=== PATIENT | female | born 1985 | race Caucasian/White ===

== ENCOUNTER → 2018-01-20 14:03 | Observation (INO) ==
--- NOTE | 2018-01-20 13:35 | OB/GYN Progress Note ---
Date of Encounter: 01/20/18 Time of Encounter: 13:32 - Assessment and Plan (1) 36 weeks gestation of Current Visit: Yes Status: Acute (2) Dizziness Current Visit: Yes Status: Acute Exam WNL. Pt tolerating water at this time. When I went to examine her she had left the unit to smoke. Upon her return she reports feeling better. She states she was just concerned about her swelling and wasn't feeling well earlier today. She denies any other complaints. Discharge home with precautions. Subjective - Subjective Interval history: 32 year-old presenting at 36w5d with c/o feeling lightheaded, dizzy, and disoriented. She denies leaking, bleeding, or regular contractions. Good FM. She reports she primarily drinks soda. She denies complications and receives care at [facility]. Upon arrival pt states she would like to have her baby today. Antepartum ROS: movement normal, no loss of fluid, no vaginal bleeding, no contractions Objective - Vital Signs Vital Signs: Intake and Output 01/19/18 01/20/18 01/20/18 23:59 07:59 15:59 Other: Weight 72.6 kg Patient Weight 01/20/18 23:59 Weight 72.6 kg - Exam FHR: category 1 FHR comments: NST reactive Auscultation: bilateral: normal Abdomen: Present: soft, gravid Uterus: Present: normal Comments: Alert and oriented x3. No confusion. Able to communicate clearly. Steady gait.
[2018-01-20 14:36] LABS: Amphetamine Screen,Urine Negative ng/mL (Cutoff=1000); Barbiturate Screen,Urine Positive ng/mL (Cutoff=200); Benzodiazepines Screen,Urine Negative ng/mL (Cutoff=200); Cannabinoid Screen,Urine Negative ng/mL (Cutoff = 50); Cocaine Screen,Urine Negative ng/mL (Cutoff= 300); Opiate Screen,Urine Negative ng/mL (Cutoff=300); Phencyclidine Screen,Urine Negative ng/mL (Cutoff=25)
== END | disposition home or self-care (01) ==
LOC: 1NENULAB
PROVIDERS: ADMIT Registered Nurse; ATTEND Registered Nurse

== ENCOUNTER 2021-03-24 12:33 | Inpatient (IN) ==
[2021-03-24 15:24] LABS: Basophils % 0.6 %; Eosinophils # 0.2 K/mcL (0.0-0.6); Eosinophils % 4.4 %; Hematocrit 33.3 % (35.3-44.9); Hemoglobin 10.8 g/dL (11.5-15.4); Immature Granulocytes % 0.2 % (0-4); Lymphocytes # 1.4 K/mcL (0.6-4.6); Lymphocytes % 26.5 %; Mean Corpuscular HGB Conc 32.4 g/dL (31.6-35.5); Mean Corpuscular Hemoglobin 28.9 pg (28.0-33.3); Mean Platelet Volume 9.5 fL (9.4-12.4); Monocytes # 0.6 K/mcL (0.0-1.3); Platelet Count 259 K/mcL (140-400); Red Blood Count 3.74 M/mcL (3.82-4.97); Red Cell Distribution Width 13.5 % (11.5-14.5); Segmented Neutrophils % 57.3 %; White Blood Count 5.3 K/mcL (4.3-11.1)
[2021-03-24 15:46] LABS: Alanine Aminotransferase 263 Units/L (7-52); Albumin 3.3 g/dL (3.5-5.7); Albumin/Globulin Ratio 0.8 (1.1-2.2); Alkaline Phosphatase 163 Units/L (34-104); Aspartate Amino Transferase 282 Units/L (13-39); BUN/Creatinine Ratio 11 (6-26); Bilirubin,Total 0.9 mg/dL (0.3-1.0); Blood Urea Nitrogen 7 mg/dL (6-20); C-Reactive Protein 7 mg/L (Less than 10); Calcium 8.9 mg/dL (8.6-10.3); Carbon Dioxide 26 mEq/L (23-29); Chloride 105 mEq/L (98-107); Glucose 82 mg/dL (70-105); Osmolality,Calculated 281 (280-300); Potassium 3.7 mEq/L (3.5-5.1); Sodium 137 mEq/L (136-145); Total Protein 7.3 g/dL (6.4-8.9); Troponin I < 0.03 ng/mL (< 0.04); eGFR For African Americans > 60 (> 60); eGFR For Non-African Americans > 60 (> 60)
[2021-03-24 16:13] LABS: Reactive Lymphocytes Present (Not Present)
[2021-03-24 16:38] LABS: Amorphous Sediment,Urine Few per hpf (None-Few); Bacteria,Urine Few per hpf (None-Few); Bilirubin,Urine Negative (Negative); Blood,Urine Moderate (Negative); Clarity,Urine Turbid (Clear); Color,Urine Yellow (Yellow); Glucose,Urine (UA) Normal (Normal); Ketones,Urine Negative (Negative); Leukocyte Esterase,Urine Large (Negative); Mucus,Urine Many per lpf (None-Few); Nitrite,Urine Negative (Negative); PH,Urine 6.5 pH Units (5.0-8.0); Protein,Urine 30 mg/dL (Neg-Trace); Specific Gravity,Urine 1.022 (1.010-1.025); Squamous Epithelial Cell,Urine Moderate per hpf (None-Few); Trichomonas,Urine Present per hpf (None Seen); WBC,Urine 15-30 per hpf (0-3)
[2021-03-24] MEDS ORDERED: Isovue-370 500 ML BOTTLE IVP ONE (17:10)
[2021-03-24] MEDS ORDERED: Cefepime HCl 2,000 MG in 0.9 % Sodium Chloride Mini Bag 100 ML IVPB STA (19:10)
[2021-03-24] MEDS ORDERED: metroNIDAZOLE 500 MG TABLET PO ONE (19:11)
[2021-03-24 19:58] LABS: Candida DNA Not Detected (Not Detect); Gardnerella DNA DETECTED (Not Detect); Trichomonas DNA DETECTED (Not Detect)
[2021-03-24 20:08] LABS: Hepatitis B Surface Antigen Nonreactive (Nonreactive)
[2021-03-24 20:37] LABS: Hepatitis B Core IgM Nonreactive (Nonreactive)
[2021-03-24 20:39] LABS: Hepatitis A Antibody IgM Nonreactive (Nonreactive)
[2021-03-24 22:02] LABS: Hepatitis C Virus Antibody Reactive (Nonreactive)
[2021-03-24] MEDS ORDERED: Ondansetron 4 MG/2 ML VIAL IVP PRN (23:34)
[2021-03-24] MEDS ORDERED: Naloxone 0.4 MG/ML INJ IVP PRN (23:34)
[2021-03-24] MEDS ORDERED: Perflutren Lipid Microsphere 1.3 ML in 0.9 % Sodium Chloride 8.7 ML IVP PRN (23:39)
[2021-03-25] MEDS ORDERED: *HR* HYDROmorphone (PF) 1 MG/ML SYRINGE IVP ONE (00:11)
[2021-03-25] MEDS ORDERED: Ipratropium/Albuterol Neb 3 ML IH PRN (00:31)
[2021-03-25] MEDS: Clotrimazole Vag CRM 45 GM TUBE VG SCH ×2 (00:41→21:09)
[2021-03-25 00:57] LABS: Basophils % 0.6 %; Eosinophils # 0.2 K/mcL (0.0-0.6); Hematocrit 33.9 % (35.3-44.9); Immature Granulocytes % 0.2 % (0-4); Mean Corpuscular HGB Conc 32.4 g/dL (31.6-35.5); Mean Corpuscular Hemoglobin 28.9 pg (28.0-33.3); Mean Platelet Volume 10.2 fL (9.4-12.4); Monocytes # 0.2 K/mcL (0.0-1.3); Monocytes % 3.5 %; Neutrophils # 3.3 K/mcL (1.6-8.9); Platelet Count 243 K/mcL (140-400); Red Blood Count 3.81 M/mcL (3.82-4.97); Red Cell Distribution Width 13.3 % (11.5-14.5); Segmented Neutrophils % 69.7 %; White Blood Count 4.8 K/mcL (4.3-11.1)
[2021-03-25 01:11] LABS: INR 1.1; Prothrombin Time 13.2 Seconds (9.4-12.1)
[2021-03-25 01:16] LABS: Albumin/Globulin Ratio 0.8 (1.1-2.2); Bilirubin,Direct 0.3 mg/dL (0.0-0.2); Bilirubin,Indirect 0.6 mg/dL (0.0-1.0); Bilirubin,Total 0.9 mg/dL (0.3-1.0); Globulin 3.6 g/dL (2.4-3.5); Total Protein 6.6 g/dL (6.4-8.9)
[2021-03-25 01:28] LABS: BUN/Creatinine Ratio 10 (6-26); Blood Urea Nitrogen 6 mg/dL (6-20); Carbon Dioxide 19 mEq/L (23-29); Chloride 108 mEq/L (98-107); Glucose 101 mg/dL (70-105); Osmolality,Calculated 276 (280-300); Potassium 3.6 mEq/L (3.5-5.1); Sodium 134 mEq/L (136-145); Troponin I < 0.03 ng/mL (< 0.04); eGFR For African Americans > 60 (> 60); eGFR For Non-African Americans > 60 (> 60)
[2021-03-25 01:33] LABS: Thyroid Stimulating Hormone 1.519 mcIU/mL (0.340-5.600)
[2021-03-25 01:38] LABS: Calcium 7.9 mg/dL (8.6-10.3); Magnesium 1.7 mg/dL (1.6-2.6)
[2021-03-25 04:02] LABS: Procalcitonin 0.17 ng/mL (0.00-0.15)
[2021-03-25] MEDS: Cefepime HCl 2,000 MG in Water for inj. (sterile) 20 ML IVP SCH ×2 (06:29→16:11)
[2021-03-25] MEDS: metroNIDAZOLE 500 MG TABLET PO SCH ×2 (08:22→21:09)
[2021-03-25] MEDS: Vancomycin 1,250 MG/262.5 ML IV.SOLN IVPB SCH ×2 (08:22→21:09)
[2021-03-25] MEDS: *HR* Enoxaparin 40 MG/0.4 ML SYRINGE SQ SCH (08:22)
[2021-03-25] MEDS ORDERED: Penicillin G Benzathine 1,200,000 UNIT/2 ML SYRINGE IM ONE ×2 (11:13→11:16)
[2021-03-25] MEDS: Ibuprofen 400 MG TABLET PO PRN (21:09)
[2021-03-26 02:13] LABS: Hematocrit 30.3 % (35.3-44.9); Hemoglobin 9.8 g/dL (11.5-15.4); Mean Corpuscular HGB Conc 32.3 g/dL (31.6-35.5); Mean Corpuscular Volume 89.6 fL (83.0-100.0); Mean Platelet Volume 10.1 fL (9.4-12.4); Platelet Count 217 K/mcL (140-400); Red Blood Count 3.38 M/mcL (3.82-4.97); Red Cell Distribution Width 13.5 % (11.5-14.5); White Blood Count 3.5 K/mcL (4.3-11.1)
[2021-03-26 02:39] LABS: BUN/Creatinine Ratio 14 (6-26); Blood Urea Nitrogen 8 mg/dL (6-20); Carbon Dioxide 24 mEq/L (23-29); Chloride 108 mEq/L (98-107); Glucose 96 mg/dL (70-105); Osmolality,Calculated 278 (280-300); Potassium 3.6 mEq/L (3.5-5.1); Sodium 135 mEq/L (136-145); eGFR For African Americans > 60 (> 60); eGFR For Non-African Americans > 60 (> 60)
[2021-03-26] MEDS: Cefepime HCl 2,000 MG in Water for inj. (sterile) 20 ML IVP SCH ×2 (05:39→17:43)
[2021-03-26 08:24] LABS: Albumin 2.9 g/dL (3.5-5.7); Albumin/Globulin Ratio 0.8 (1.1-2.2); Bilirubin,Direct 0.4 mg/dL (0.0-0.2); Bilirubin,Indirect 0.5 mg/dL (0.0-1.0); Bilirubin,Total 0.9 mg/dL (0.3-1.0); Globulin 3.6 g/dL (2.4-3.5); Total Protein 6.5 g/dL (6.4-8.9)
[2021-03-26] MEDS: Ibuprofen 400 MG TABLET PO PRN (08:50)
[2021-03-26] MEDS: metroNIDAZOLE 500 MG TABLET PO SCH ×2 (08:50→23:07)
[2021-03-26] MEDS: Vancomycin 1,250 MG/262.5 ML IV.SOLN IVPB SCH (08:51)
[2021-03-26] MEDS: *HR* Enoxaparin 40 MG/0.4 ML SYRINGE SQ SCH (08:51)
[2021-03-26] MEDS: Vancomycin 1,500 MG/265 ML IV.SOLN IVPB SCH (23:07)
[2021-03-26] MEDS: Clotrimazole Vag CRM 45 GM TUBE VG SCH (23:09)
[2021-03-27 03:33] LABS: Hematocrit 34.7 % (35.3-44.9); Hemoglobin 11.1 g/dL (11.5-15.4); Mean Corpuscular Hemoglobin 28.8 pg (28.0-33.3); Mean Corpuscular Volume 89.9 fL (83.0-100.0); Mean Platelet Volume 10.4 fL (9.4-12.4); Platelet Count 251 K/mcL (140-400); Red Blood Count 3.86 M/mcL (3.82-4.97); Red Cell Distribution Width 13.7 % (11.5-14.5); White Blood Count 4.1 K/mcL (4.3-11.1)
[2021-03-27 03:51] LABS: Alanine Aminotransferase 360 Units/L (7-52); Albumin 2.9 g/dL (3.5-5.7); Albumin/Globulin Ratio 0.8 (1.1-2.2); Alkaline Phosphatase 162 Units/L (34-104); Aspartate Amino Transferase 521 Units/L (13-39); BUN/Creatinine Ratio 13 (6-26); Blood Urea Nitrogen 6 mg/dL (6-20); Calcium 8.3 mg/dL (8.6-10.3); Carbon Dioxide 22 mEq/L (23-29); Chloride 106 mEq/L (98-107); Globulin 3.8 g/dL (2.4-3.5); Glucose 76 mg/dL (70-105); Osmolality,Calculated 274 (280-300); Potassium 4.1 mEq/L (3.5-5.1); Sodium 134 mEq/L (136-145); Total Protein 6.7 g/dL (6.4-8.9); eGFR For African Americans > 60 (> 60); eGFR For Non-African Americans > 60 (> 60)
[2021-03-27] MEDS: Cefepime HCl 2,000 MG in Water for inj. (sterile) 20 ML IVP SCH ×2 (05:08→17:08)
[2021-03-27] MEDS: Vancomycin 1,250 MG/262.5 ML IV.SOLN IVPB SCH (05:17)
[2021-03-27] MEDS: *HR* Enoxaparin 40 MG/0.4 ML SYRINGE SQ SCH (10:08)
[2021-03-27] MEDS: Vancomycin 1,500 MG/265 ML IV.SOLN IVPB SCH ×2 (10:08→19:58)
[2021-03-27] MEDS: metroNIDAZOLE 500 MG TABLET PO SCH ×2 (10:08→19:58)
[2021-03-27] MEDS: Clotrimazole Vag CRM 45 GM TUBE VG SCH (19:58)
[2021-03-28] MEDS: Cefepime HCl 2,000 MG in Water for inj. (sterile) 20 ML IVP SCH (05:31)
[2021-03-28] MEDS: *HR* Enoxaparin 40 MG/0.4 ML SYRINGE SQ SCH (08:37)
[2021-03-28] MEDS: metroNIDAZOLE 500 MG TABLET PO SCH (08:37)
[2021-03-28 08:43] LABS: Hematocrit 38.6 % (35.3-44.9); Mean Corpuscular HGB Conc 32.9 g/dL (31.6-35.5); Mean Corpuscular Hemoglobin 29.3 pg (28.0-33.3); Mean Corpuscular Volume 89.1 fL (83.0-100.0); Mean Platelet Volume 9.5 fL (9.4-12.4); Platelet Count 279 K/mcL (140-400); Red Blood Count 4.33 M/mcL (3.82-4.97); Red Cell Distribution Width 13.7 % (11.5-14.5); White Blood Count 4.2 K/mcL (4.3-11.1)
[2021-03-28 08:45] LABS: Hemoglobin 12.7 g/dL (11.5-15.4)
[2021-03-28 09:05] LABS: Alanine Aminotransferase 434 Units/L (7-52); Albumin 3.3 g/dL (3.5-5.7); Albumin/Globulin Ratio 0.8 (1.1-2.2); Alkaline Phosphatase 178 Units/L (34-104); Aspartate Amino Transferase 582 Units/L (13-39); BUN/Creatinine Ratio 12 (6-26); Bilirubin,Total 1.1 mg/dL (0.3-1.0); Blood Urea Nitrogen 7 mg/dL (6-20); Calcium 8.6 mg/dL (8.6-10.3); Carbon Dioxide 24 mEq/L (23-29); Chloride 106 mEq/L (98-107); Globulin 4.2 g/dL (2.4-3.5); Glucose 86 mg/dL (70-105); Osmolality,Calculated 277 (280-300); Sodium 135 mEq/L (136-145); Total Protein 7.5 g/dL (6.4-8.9); eGFR For African Americans > 60 (> 60); eGFR For Non-African Americans > 60 (> 60)
[2021-03-28] MEDS: Vancomycin 1,500 MG/265 ML IV.SOLN IVPB SCH (09:46)
[2021-03-28] MEDS ORDERED: 0.9 % Sodium Chloride 500 ML IVC ONE (12:01)
[2021-03-28] MEDS ORDERED: Lidocaine Viscous Oral Soln 15 ML SOLUTION MM PRN (12:01)
[2021-03-28] MEDS ORDERED: *HR* Midazolam HCl 2 MG/2 ML VIAL ONE (12:04)
[2021-03-28 12:06] VITALS: BP 107/68; PULSE 73; TEMP 97.7; O2SAT 99
[2021-03-28] MEDS ORDERED: Lidocaine Viscous Oral Soln 15 ML SOLUTION ONE (12:08)
[2021-03-28] MEDS ORDERED: Lidocaine -MPF 2% 5 ML VIAL SQ ONE (14:01)
[2021-03-28] MEDS ORDERED: *HR* Propofol 500 MG/50 ML BOTTLE IVP ONE (14:01)
[2021-03-28] MEDS ORDERED: *HR* Propofol 200 MG/20 ML VIAL IVP ONE (14:01)
[2021-03-28 14:56] LABS: RPR REACTIVE (Non Reactive)
== END 2021-03-28 14:02 | disposition home or self-care (01) | DRG 531 ==
LOC: EMEROOARM 12:33 → 2ANU 12:33 → SUATTDRO 22:07 → 2ANU 23:40
PROVIDERS: ADMIT Internal Medicine; ATTEND Family Medicine